=== PATIENT | male | born 1985 ===

== ENCOUNTER 2018-10-13 12:03 | Outpatient (RCR) | payer BC, OTHER ==
[~2018-10-13 12:03] MED LIST: DIVA250T2 PO; HYDR-3583 PO; HYDR1TAB PO; PHN100C PO; [UNRECOGNIZED DRUG - REMARK]
== END 2019-01-11 | disposition home or self-care (01) ==
LOC: LAB 12:03
PROVIDERS: ATTEND Nurse Practitioner Community Health
DX: Z31.69 Encounter for other general counseling and advice on procreation (principal)
CPT/HCPCS: 89320

== ENCOUNTER 2019-07-31 09:22 | Emergency (ER) | payer OTHER ==
[~2019-07-31] VITALS: Ht 182.8 cm; Wt 79.6 kg
[2019-07-31] MEDS ORDERED: CEPH500T PO (10:45)
[2019-07-31] MEDS ORDERED: LIDOCAINE/EPI 2% 1:100,00 (XYLOCAINE) 20 ML VIAL INJ ONE (10:45)
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
[2019-07-31 11:13] VITALS: BP 131/93
== END 2019-07-31 11:22 | disposition home or self-care (01) ==
LOC: EDUNIT# 09:22 → ER 09:23
DX: S01.01XA Laceration without foreign body of scalp, initial encounter (principal); G40.909 Epilepsy, unspecified, not intractable, without status epilepticus; Y04.0XXA Assault by unarmed brawl or fight, initial encounter
CPT/HCPCS: 12001; 70450

== ENCOUNTER → 2020-06-10 | Outpatient (CLI) | payer OTHER ==
[~2020-06-10] MED LIST changes: +CEPH500T PO
--- NOTE | 2020-06-10 11:15 | NUR ---
Covid swab collected per this RN. Swab sent to lab
== END ==
LOC: LAB 11:19
PROVIDERS: ATTEND Emergency Medicine
DX: Z01.812 Encounter for preprocedural laboratory examination (principal); Z20.828 Contact with and (suspected) exposure to other viral communicable diseases
CPT/HCPCS: 87635

== ENCOUNTER 2021-03-09 21:09 | Emergency (ER) | payer OTHER ==
[~2021-03-09] VITALS: Ht 175 cm; Wt 99.0 kg
[2021-03-09] MEDS ORDERED: ONDANSETRON 4 MG/2 ML (SDV) Z0FRAN ONE (21:24)
[2021-03-09] MEDS ORDERED: LACTATED RINGERS 1,000 ML IV ONE (21:24)
[2021-03-09] MEDS ORDERED: fentaNYL INJ 100 MCG/2 ML AMP ONE (21:24)
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
[2021-03-09] MEDS ORDERED: LACTATED RINGERS 1,000 ML IV SCH (21:30)
[2021-03-09] MEDS ORDERED: ONDANSETRON 4 MG/2 ML (SDV) Z0FRAN IVP ONE (21:30)
[2021-03-09] MEDS ORDERED: fentaNYL INJ 100 MCG/2 ML AMP IVP ONE ×2 (21:30→22:15)
[2021-03-09 21:31] LABS: BASOPHILS % (AUTO) 1 % (0-10); BILIRUBIN,URINE NEGATIVE (NEGATIVE); CLARITY,URINE CLEAR; COLOR,URINE YELLOW; EOSINOPHILS # (AUTO) 0.1 10^3/uL (0.0-0.3); EOSINOPHILS % (AUTO) 1 % (0-10); GLUCOSE, URINE (UA) NEGATIVE (NEGATIVE); HEMATOCRIT 46 % (40-54); HEMOGLOBIN 15.6 g/dL (13.3-17.7); KETONES,URINE NEGATIVE (NEGATIVE); LEUKOCYTE ESTERASE ,URINE NEGATIVE (NEGATIVE); LYMPHOCYTES # (AUTO) 2.8 10^3/uL (1.0-4.0); LYMPHOCYTES % (AUTO) 34 % (12-44); MEAN CORPUSCULAR HEMOGLOBIN 30 pg (25-34); MEAN CORPUSCULAR HGB CONC 34 g/dL (32-36); MEAN CORPUSCULAR VOLUME 88 fL (80-99); MEAN PLATELET VOLUME 10.4 fL (9.0-12.2); MONOCYTES # (AUTO) 0.6 10^3/uL (0.0-1.0); MONOCYTES % (AUTO) 8 % (0-12); NEUTROPHILS # (AUTO) 4.7 10^3/uL (1.8-7.8); NEUTROPHILS % (AUTO) 57 % (42-75); NITRITE,URINE NEGATIVE (NEGATIVE); PLATELET COUNT 242 10^3/uL (130-400); PROTEIN,URINE NEGATIVE (NEGATIVE); WHITE BLOOD COUNT 8.2 10^3/uL (4.3-11.0)
[2021-03-09 21:43] LABS: ALBUMIN 4.3 GM/DL (3.2-4.5); CHLORIDE 103 MMOL/L (98-107); POTASSIUM 3.5 MMOL/L (3.6-5.0); SODIUM 142 MMOL/L (135-145)
[2021-03-09 21:44] LABS: RBC,URINE RARE /HPF
[2021-03-09 21:45] LABS: AMORPHOUS SEDIMENT,UR RARE AMOR URATES /LPF; BACTERIA,URINE TRACE /HPF; CALCIUM 9.6 MG/DL (8.5-10.1); WBC,URINE 0-2 /HPF
[2021-03-09 21:46] LABS: GLUCOSE 80 MG/DL (70-105); TOTAL PROTEIN 7.4 GM/DL (6.4-8.2)
[2021-03-09 21:47] LABS: CARBON DIOXIDE 26 MMOL/L (21-32)
[2021-03-09 21:48] LABS: BILIRUBIN,TOTAL 0.2 MG/DL (0.1-1.0)
[2021-03-09 21:49] LABS: ALKALINE PHOSPHATASE 69 U/L (40-136)
[2021-03-09 21:50] LABS: CREATININE SERUM 1.09 MG/DL (0.60-1.30); GFR ESTIMATED 76
[2021-03-09 21:51] LABS: BUN/CREATININE RATIO 17
[2021-03-09 21:53] LABS: ALANINE AMINOTRANSFERASE 34 U/L (0-55)
[2021-03-09] MEDS ORDERED: NS 100 ML (IVPB) BAG IV ONE (22:15)
[2021-03-09] MEDS ORDERED: IOHEXOL 350 MG/ML 100 ML (OMNIPAQUE 350) VIAL IV ONE (22:15)
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
[2021-03-09] MEDS ORDERED: ACHD5005 PO (22:41)
[2021-03-09] MEDS ORDERED: KETOROLAC 30 MG/ML VIAL IVP ONE (23:15)
[2021-03-09 23:39] VITALS: BP 129/87
== END 2021-03-09 23:39 | disposition home or self-care (01) ==
LOC: EDUNIT# 21:09 → ER 21:12
DX: S40.012A Contusion of left shoulder, initial encounter (principal); G40.909 Epilepsy, unspecified, not intractable, without status epilepticus; Z79.899 Other long term (current) drug therapy; V86.99XA Unspecified occupant of other special all-terrain or other off-road motor vehicle injured in nontraffic accident, initial encounter
CPT/HCPCS: 70450; 71260; 72125; 73030; 73090; 74177; 80053; 81000; 85025; 99284; G0480; 36415; 80320